=== PATIENT | male | born 1970 | race Caucasian/White ===

== ENCOUNTER 2017-08-27 17:45 | Inpatient (IN) | payer OTHER ==
[2017-08-27 18:22] LABS: Basophils # (Auto) 0.1 K/mm3 (0.0-0.1); Basophils % (Auto) 0.6 % (0.0-1.8); Eosinophils % (Auto) 0.1 % (0.0-4.3); Hematocrit 47.3 % (35.5-45.6); Hemoglobin 16.1 gm/dl (11.8-15.2); Lymphocytes # (Auto) 1.4 K/mm3 (1.2-5.4); Lymphocytes % (Auto) 13.9 % (13.4-35.0); Mean Corpuscular HGB Conc 34 % (32-34); Mean Corpuscular Hemoglobin 31 pg (28-32); Mean Corpuscular Volume 91 fl (84-94); Monocytes # (Auto) 0.4 K/mm3 (0.0-0.8); Monocytes % (Auto) 4.5 % (0.0-7.3); Platelet Count 346 K/mm3 (140-440); Red Cell Distribution Width 13.4 % (13.2-15.2)
[2017-08-27 18:38] LABS: Alanine Aminotransferase 18 units/L (7-56); Albumin 4.4 g/dL (3.9-5); BUN/Creatinine Ratio 14; Blood Urea Nitrogen 14 mg/dL (9-20); Calcium 9.9 mg/dL (8.4-10.2); Hemolysis Index 12; Lipase 17 units/L (13-60)
--- NOTE | 2017-08-27 18:42 | Ultrasound Report ---
FINAL REPORT PROCEDURE: US ABDOMEN LIMITED TECHNIQUE: Real-time sonography was performed of the right upper quadrant with image documentation. CPT 45263 HISTORY: abd pain COMPARISON: No prior studies are available for comparison. FINDINGS: Liver demonstrates increased echotexture. Visualized pancreatic head and body demonstrate normal appearance. Right kidney measures 10 x 5 x 6 centimeters with normal echotexture without calculi or hydronephrosis. Gallbladder is well distended and filled with multiple echogenic shadowing calculi measuring about 1 centimeter. There is mild thickening of the gallbladder talley. No pericholecystic collections are noted. Common duct is 5 millimeters in caliber.. IMPRESSION: Cholelithiasis with wall thickening consistent with cholecystitis Fatty liver
[2017-08-27] MEDS ORDERED: ZOFRAN IV ONE (19:48)
[2017-08-27] MEDS ORDERED: DILAUDID IV ONE (19:48)
[2017-08-27] MEDS ORDERED: NACL 0.9% 1000 ML 1,000 ML IV ONE (19:48)
[2017-08-27] MEDS ORDERED: BENTYL IM ONE (19:48)
--- NOTE | 2017-08-27 19:58 | Emergency Department Report ---
HPI - General Chief Complaint: Abdominal Pain - HPI HPI: Room 24 The patient is a 46-year-old male presenting with chief complaint of abdominal pain. Patient complain of midepigastric right upper quadrant abdominal pain that began last night. The pain has been constant and associated with copious nausea and vomiting. There has been no history of diarrhea. Has been no history of fever. The patient gives his pain a score of 10/10 the patient states his abdominal pain does radiate to his back Location: Abdomen Duration: Constant since last night Quality: Pain Severity: 10/10 Modifying factors: [see above] Context: [see above] Mode of transportation: [not driving] ED Past Medical Hx - Past Medical History Previous Medical History?: No - Surgical History Past Surgical History?: No - Family History Family history: no significant - Social History Smoking Status: Current Every Day Smoker (1/2 pack per day) Substance Use Type: None, Alcohol (occasional) - Medications Home Medications: Home Medications Medication Instructions Recorded Confirmed Last Taken Type Ibuprofen [Motrin] 600 mg PO Q8H PRN #40 tablet 04/18/15 Unknown Rx Neomy/Polymyx B/Hc (Otic) Soln 4 drops AU TID #1 bottle 04/18/15 Unknown Rx [Cortisporin (Otic) Soln] Sulfamethoxazole/Trimethoprim 1 each PO BID #20 tablet 04/18/15 Unknown Rx [Bactrim DS TAB] traMADol [Ultram] 50 mg PO Q6HR PRN #20 tablet 04/18/15 Unknown Rx Acetaminophen [Tylenol] 500 mg PO Q6HR #20 tablet 07/07/15 Unknown Rx Omeprazole [PriLOSEC] 20 mg PO QDAY #14 capsule.dr 07/07/15 Unknown Rx Ondansetron [Zofran Odt] 4 mg PO Q8HR #10 tab.rapdis 07/07/15 Unknown Rx Polyethylene Glycol/Elect 4,000 ml PO ONCE #1 bottle 07/07/15 Unknown Rx [Golytely] ED Review of Systems ROS: Stated complaint: ABD PAIN Other details as noted in HPI Constitutional: denies: fever Gastrointestinal: abdominal pain, nausea, vomiting. denies: diarrhea Musculoskeletal: back pain Physical Exam - Physical Exam Vital Signs: Vital Signs 08/27/17 17:49 Temperature 98.7 F Pulse Rate 58 L Respiratory 18 Rate Blood Pressure 138/82 O2 Sat by Pulse 100 Oximetry Physical Exam: GENERAL: The patient is well-developed well-nourished male lying on stretcher moaning in pain. [] HEENT: Normocephalic. Atraumatic. Extraocular motions are intact. Patient has moist mucous membranes. NECK: Supple. No meningitic signs are noted. There is no adenopathy noted. CHEST/LUNGS: Clear to auscultation. There is no respiratory distress noted. HEART/CARDIOVASCULAR: Regular. There is no tachycardia. There is no gallop rub or murmur. ABDOMEN: Abdomen is soft, with tenderness to palpation in the right upper quadrant. No rebound or guarding. Patient has normal bowel sounds. There is no abdominal distention. SKIN: There is no rash. There is no edema. There is no diaphoresis. NEURO: The patient is awake, alert, and oriented. The patient is cooperative. The patient has normal speech MUSCULOSKELETAL:There is no evidence of acute injury. ED Course Vital Signs 08/27/17 17:49 Temperature 98.7 F Pulse Rate 58 L Respiratory 18 Rate Blood Pressure 138/82 O2 Sat by Pulse 100 Oximetry - Reevaluation(s) Reevaluation #1: 08/27/17 21:08 Patient states his pain is decreased from 10/10-5/10 after IV analgesics. Patient states he still is not comfortable going home at this time - Consultations Consultation #1: 08/27/17 20:01 Surgery paged 08/27/17 20:06 Ultrasound labs discuss with Dr. Morse. I explained that the patient just received pain medication. I will call Dr. Morse back in 1 hour 08/27/17 21:09 Surgery paged 08/27/17 21:[address] Morse. States he will admit the patient to the hospital ED Medical Decision Making - Lab Data Result diagrams: 08/27/17 18:00 08/27/17 18:00 Laboratory Tests 08/27/17 08/27/17 18:00 18:00 WBC 10.0 RBC 5.20 H Hgb 16.1 H Hct 47.3 H MCV 91 MCH 31 MCHC 34 RDW 13.4 Plt Count 346 Lymph % (Auto) 13.9 Beadle % (Auto) 4.5 Eos % (Auto) 0.1 Baso % (Auto) 0.6 Lymph # 1.4 Beadle # 0.4 Eos # 0.0 Baso # 0.1 Seg Neutrophils % 80.9 H Seg Neutrophils # 8.1 H Sodium 140 Potassium 4.3 Chloride 98.2 Carbon Dioxide 23 Anion Gap 23 BUN 14 Creatinine 1.0 Estimated GFR > 60 BUN/Creatinine Ratio 14 Glucose 130 H Calcium 9.9 Total Bilirubin 0.40 AST 29 ALT 18 Alkaline Phosphatase 74 Total Protein 7.6 Albumin 4.4 Albumin/Globulin Ratio 1.4 Lipase 17 - Radiology Data Radiology results: report reviewed (right upper quadrant ultrasound), image reviewed (right upper quadrant ultrasound) Right upper quadrant ultrasound (read by radiologist)-gallbladders well distended and filled with multiple echogenic shadowing calculi measuring about 1 cm. There is mild thickening of the gallbladder talley. No pericholecystic collections are noted. Common duct is 5 mm in caliber. Impression: Cholelithiasis with wall thickening consistent with cholecystitis. Fatty liver - Differential Diagnosis symptomatic cholelithiasis, acute cholecystitis, acute cholangitis, UTI Critical care attestation.: If time is entered above; I have spent that time in minutes in the direct care of this critically ill patient, excluding procedure time. ED Disposition Clinical Impression: Acute abdominal pain, Acute cholecystitis, Nausea & vomiting Disposition: 09 OP ADMIT IP TO THIS HOSP Is pt being admited?: Yes Does the pt Need Aspirin: No Condition: Fair Referrals: YOSVANY AMBROSE MD [Primary Care Provider] - 3-5 Days Time of Disposition: 21:15 (patient admitted by Dr. Morse)
[2017-08-27] MEDS ORDERED: ANCEF/NS 1 GM/50 ML 1 GM/50 ML BAG IV SCH (22:00)
[2017-08-27] MEDS ORDERED: ATIVAN IV ONE (22:38)
[2017-08-27] MEDS: NACL 0.9% 1000 ML 1,000 ML IV SCH (23:58)
[2017-08-28] MEDS: ceFAZolin 1 GM in NACL 0.9% 20 ML IV SCH ×4 (00:29→21:41)
[2017-08-28] MEDS: DILAUDID IV PRN ×4 (00:36→21:38)
[2017-08-28] MEDS: NACL 0.9% 1000 ML 1,000 ML IV SCH ×2 (06:28→18:16)
[2017-08-28] MEDS: ZOFRAN IV PRN ×2 (12:52→18:20)
--- NOTE | 2017-08-28 12:52 | Nuclear Medicine Report ---
NUCLEAR MEDICINE HEPATOBILIARY SCAN: 08/28/17 08:00:00 CLINICAL: Abdominal pain. Cholelithiasis. TECHNIQUE: 5.0mCi technetium 99m Choletec was injected intravenously. Serial images were obtained up to two hours. FINDINGS: Normal activity in the liver, bile ducts and small bowel. No gallbladder activity is identified. IMPRESSION: Nonvisualization of the gallbladder consistent with cystic duct obstruction and probable acute cholecystitis.
--- NOTE | 2017-08-28 18:52 | History and Physical Report ---
HISTORY OF PRESENT ILLNESS: This man was seen in the Emergency Room late in the afternoon because of severe pain to the epigastrium with nausea and vomiting. He is a 46-year-old -[place] man who never had this before maybe one month ago with some pain. The patient never had any abdominal operations. He smokes about a pack a day. He does not drink alcohol. He is a construction sales manager from . Most of the information was given to me by his daughter. She was interpreting that to treat between me and him. He denied any vomiting of blood. He had no problem with his bowel movements. He is a healthy young man, otherwise is in pain to the mid upper epigastrium more to the right side. He denied any diarrhea and he has never been to hospital for any reason. According to our Emergency Room doctor, his pain score was 10/10. ALLERGIES: Allergic reaction were denied. MEDICATIONS: None. SOCIAL HISTORY: He has 3 children. PHYSICAL EXAMINATION: GENERAL: Showed a preserved young man who is in no distress. He is in pain; however, to the right mid upper abdomen. HEAD AND NECK: Negative. NECK: Supple. CHEST: Essentially clear. HEART: Sounds were normal to me. ABDOMEN: Moderately soft. Severe tenderness; however, point tenderness in the midepigastric area to the right side. EXTREMITIES: Showed no edema. IMPRESSION AND PLAN: Epigastric pain, more to the right upper quadrant with nausea and vomiting with a picture of gallbladder disease with stones seen on the sonogram and HIDA scan today showed evidence of a cystic duct obstruction. I had a lengthy talk with the patient and with the bindery library technical assistant, his daughter as to the need for surgical intervention, we will plan to have this done tomorrow. In the meantime, he is on antibiotics in the form of Ancef 1 g q.8 hours, Dilaudid for pain, and Zofran for nausea, IV fluids to go 125 mL per hour, normal saline with 20 of KCl. I talked to him and he agreed on the above, we tried to do him tomorrow. I already called the OR and scheduled his main. JOB# [id number] CHRISK/JORY
[2017-08-28] MEDS: ZOFRAN IV SCH (21:38)
[2017-08-28] MEDS: NS/KCL 20MEQ 20 MEQ/1,000 ML BAG IV SCH (22:21)
[2017-08-29] MEDS: ZOFRAN IV SCH ×5 (00:52→18:20)
[2017-08-29] MEDS: DILAUDID IV PRN ×5 (04:10→17:14)
[2017-08-29] MEDS: ceFAZolin 1 GM in NACL 0.9% 20 ML IV SCH ×3 (05:48→21:18)
[2017-08-29 06:59] LABS: Bilirubin,Urine NEG (Negative); Blood,Urine NEG (Negative); Color,Urine Straw (Yellow); Mucus,Urine FEW /HPF; Protein,Urine <15 mg/dL mg/dL (Negative); Urobilinogen,Urine < 2.0 mg/dL (<2.0); WBC,Urine < 1.0 /HPF (0.0-6.0)
[2017-08-29] MEDS: NS/KCL 20MEQ 20 MEQ/1,000 ML BAG IV SCH (09:05)
[2017-08-29] MEDS ORDERED: VERSED IV NR ×2 (12:00→14:00)
[2017-08-29] MEDS: LACTATED RINGERS 1,000 ML IV SCH ×2 (13:25→18:37)
[2017-08-29] MEDS ORDERED: MARCAINE 0.5% 30 ML INFILTRATI ONE (13:32)
[2017-08-29] MEDS ORDERED: DIPRIVAN 10 MG/ML IV ONE (13:33)
[2017-08-29] MEDS ORDERED: XYLOCAINE MPF 2% ONE (13:33)
[2017-08-29] MEDS ORDERED: ZEMURON IV ONE (13:34)
[2017-08-29] MEDS ORDERED: DILAUDID ONE (13:34)
[2017-08-29] MEDS ORDERED: TORADOL IV PRN (13:38)
[2017-08-29] MEDS ORDERED: ZOFRAN IV PRN (13:38)
--- NOTE | 2017-08-29 13:40 | Anesthesia Day of Surgery ---
Anesthesia Day of Surgery - Day of Surgery Patient Examined: Yes Patient H&P Reviewed: Yes Patient is NPO: Yes
--- NOTE | 2017-08-29 13:40 | Anesthesia Consultation ---
Anesthesia Consult and Med Hx - Airway Anesthetic Teeth Evaluation: Good ROM Head & Neck: Adequate Mental/Hyoid Distance: Adequate Mallampati Class: Class II Intubation Access Assessment: Probably Good - Pulmonary Exam CTA: Yes - Cardiac Exam Cardiac Exam: RRR - Pre-Operative Health Status ASA Pre-Surgery Classification: ASA2 Proposed Anesthetic Plan: General - Pulmonary Hx Smoking: Yes Hx Asthma: No COPD: No Hx Pneumonia: No - Cardiovascular System Hx Hypertension: Yes Hx Coronary Artery Disease: No Hx Heart Attack/AMI: No Hx Angina: No - Endocrine Hx End Stage Renal Disease: No - Other Systems Hx Cancer: No
[2017-08-29] MEDS ORDERED: LACTATED RINGERS 1,000 ML IV SCH ×2 (14:00)
[2017-08-29] MEDS ORDERED: MARCAINE 0.5% INFILTRATI ONE (14:22)
[2017-08-29] MEDS ORDERED: NEOSTIGMINE ONE (15:29)
[2017-08-29] MEDS ORDERED: ROBINUL ONE (15:29)
[2017-08-29] MEDS ORDERED: ZOFRAN ONE (15:30)
[2017-08-29] MEDS ORDERED: LACTATED RINGERS 1,000 ML ONE (15:32)
[2017-08-29] MEDS ORDERED: ULTRAM PO PRN (15:38)
--- NOTE | 2017-08-29 15:53 | Post Anesthesia Evaluation ---
- Post Anesthesia Evaluation Patient Participated: Yes Airway Patent: Yes Stable Respiratory Function: Yes Nausea/Vomiting: No Temp > 96.8F: Yes Pain Manageable: Yes Adequeate Hydration: Yes Anesthesia Complications: No
[2017-08-29] MEDS: ZOFRAN ODT PO SCH (21:38)
[2017-08-30] MEDS: DILAUDID IV PRN ×6 (00:22→21:28)
[2017-08-30] MEDS: LACTATED RINGERS 1,000 ML IV SCH ×3 (00:23→21:28)
[2017-08-30] MEDS: ZOFRAN IV SCH ×4 (00:36→21:28)
[2017-08-30] MEDS: ZOFRAN ODT PO SCH ×3 (06:03→23:00)
[2017-08-30] MEDS: ceFAZolin 1 GM in NACL 0.9% 20 ML IV SCH ×3 (06:06→21:29)
[2017-08-30] MEDS: PROTONIX PO SCH (09:25)
[2017-08-30] MEDS ORDERED: NON-FORMULARY (Omeprazole [Prilosec] 20 MG) PO SCH (10:00)
--- NOTE | 2017-08-30 16:07 | Progress Note ---
Subjective Patient Reports: Positive: feels better, flatus Narrative: alert responsive , drainage minimal sanguinous .NG in will DC . ambulate .ice chips . Objective Vital Signs - 12hr 08/30/17 08/30/17 08/30/17 04:24 04:33 07:04 Temperature 99.0 F 99.7 F H Pulse Rate 57 L 61 Respiratory 18 18 20 Rate Blood Pressure 116/71 110/64 [Left] O2 Sat by Pulse 96 97 Oximetry 08/30/17 08/30/17 12:00 12:04 Temperature 99.0 F Pulse Rate 59 L 58 L Respiratory 18 Rate Blood Pressure 114/67 [Left] O2 Sat by Pulse 98 98 Oximetry - Labs 08/27/17 18:00 08/27/17 18:00
[2017-08-30 17:01] LABS: Hematocrit 37.4 % (35.5-45.6); Hemoglobin 12.7 gm/dl (11.8-15.2); Mean Corpuscular HGB Conc 34 % (32-34); Mean Corpuscular Hemoglobin 31 pg (28-32); Mean Corpuscular Volume 93 fl (84-94); Platelet Count 284 K/mm3 (140-440); Red Blood Count 4.04 M/mm3 (3.65-5.03); Red Cell Distribution Width 13.3 % (13.2-15.2)
[2017-08-30 17:14] LABS: Alanine Aminotransferase 16 units/L (7-56); Albumin 3.3 g/dL (3.9-5)
[2017-08-30 17:16] LABS: Bilirubin,Direct < 0.2 mg/dL (0-0.2)
--- NOTE | 2017-08-30 19:32 | Operative Report ---
PREOPERATIVE DIAGNOSES: Gallbladder disease with stones with positive HIDA scan. POSTOPERATIVE DIAGNOSES: Gallbladder disease with stones with positive HIDA scan. SURGERY: Laparoscopic cholecystectomy with conversion to open that is as the patient had lots of inflammation the gallbladder was very thick and we barely was able to see the infundibulum. ANESTHESIA: General. BLOOD LOSS: Minimal. FINDINGS: The patient had very severely inflamed gallbladder to me that the wall is at least 5-8 mm thick. The infundibulum was barely seen and I could not pinpoint the cystic duct area, so had to open this was after putting the 4 trocars #10 in the epigastric area, #5 in the infraumbilical area and 2 fives in the right upper quadrants, so I could not do that and I had to abort the laparoscopic procedure and make it an open. DESCRIPTION OF PROCEDURE: As above, then, a costal incision was performed on the right side, deep and subcutaneous tissue all the way down to fascia, which was incised. I was able to reach the peritoneum. The gallbladder was barely palpable. It was thick. I had to compress it and aspirate bile from it. It was held from its fundus and infundibular area. At that point, I had to go retrogradely, dissecting it from its bed with use of blunt and sharp dissection down to the infundibulum, at which point I was able to isolate the cystic duct, was very small, barely 1-2 mm. I put 1 clip there and then the gallbladder was removed in toto. The area was then irrigated with sterile normal saline and I left a drain there through a small stab wound incision in the right side of abdomen and the wound was then closed in layers. I used #1 Vicryl continuous and then 1 interrupted for the fascia and the skin with mavis. The patient was then transferred to the recovery room in good condition. JOB# [id number] ABBY/JORY
[2017-08-31] MEDS: ZOFRAN IV SCH ×4 (02:33→20:45)
[2017-08-31] MEDS: ZOFRAN ODT PO SCH ×2 (05:36→14:50)
[2017-08-31] MEDS: ceFAZolin 1 GM in NACL 0.9% 20 ML IV SCH ×3 (05:39→23:55)
[2017-08-31] MEDS: PROTONIX PO SCH (09:31)
[2017-08-31] MEDS: LACTATED RINGERS 1,000 ML IV SCH (09:33)
--- NOTE | 2017-08-31 16:51 | Progress Note ---
Subjective Patient Reports: Positive: feels better, still having pain, flatus Narrative: Doing fine will start PO home in AM ? Objective Vital Signs - 12hr 08/31/17 08/31/17 08/31/17 05:29 05:32 08:00 Temperature 100.2 F H 99.6 F 99.2 F Pulse Rate 69 Respiratory 20 18 Rate Blood Pressure Blood Pressure 97/62 103/64 [Left] O2 Sat by Pulse 91 Oximetry 08/31/17 08/31/17 08:21 13:07 Temperature Pulse Rate 62 93 H Respiratory Rate Blood Pressure 109/73 Blood Pressure [Left] O2 Sat by Pulse 94 95 Oximetry - Labs 08/30/17 16:43 08/27/17 18:00 Diabetes panel 08/30/17 Range/Units 16:43 AST 26 (5-40) units/L ALT 16 (7-56) units/L Alkaline Phosphatase 61 (35-129) units/L Total Protein 6.2 L (6.3-8.2) g/dL Albumin 3.3 L (3.9-5) g/dL Calcium panel 08/30/17 Range/Units 16:43 Albumin 3.3 L (3.9-5) g/dL Adrenal panel 08/30/17 Range/Units 16:43 Total Bilirubin 0.70 (0.1-1.2) mg/dL AST 26 (5-40) units/L ALT 16 (7-56) units/L Alkaline Phosphatase 61 (35-129) units/L Total Protein 6.2 L (6.3-8.2) g/dL Albumin 3.3 L (3.9-5) g/dL
[2017-09-01] MEDS: ZOFRAN IV SCH ×3 (00:57→13:00)
[2017-09-01] MEDS: ZOFRAN ODT PO SCH ×2 (00:59→06:34)
[2017-09-01] MEDS: DILAUDID IV PRN ×2 (01:17→06:34)
[2017-09-01] MEDS: LACTATED RINGERS 1,000 ML IV SCH (01:23)
[2017-09-01] MEDS: ceFAZolin 1 GM in NACL 0.9% 20 ML IV SCH ×2 (06:18→14:24)
[2017-09-01] MEDS: PROTONIX PO SCH (10:13)
--- NOTE | 2017-09-01 14:42 | Discharge Summary ---
This man came via the ER because of severe pain to the right upper quadrant. He was found to have gallstones and this was seen on the x-ray, so he underwent laparoscopic cholecystectomy. This was changed to an open cholecystectomy. This was on 08/30/2017. Postop, he did extremely well. He was discharged home to be seen in my office in about 10 days. Low fat diet was given prescription for Vicodin to be taken every 4-6 hours, to call me if he has any problem otherwise. JOB# [id number] ABBY/JORY
[2017-09-01 16:55] VITALS: BP 109/64
--- NOTE | 2017-09-02 22:11 | Discharge Summary ---
FINAL DIAGNOSIS: Acute cholecystitis. HOSPITAL COURSE: This was seen the day of his admission because of severe pain that he developed in the right upper quadrant, severe nausea and vomiting. He had a workup done by our ER physician and he had a gallbladder HIDA scan that showed evidence of_obstuction of the gallbladder. The pain was consistent with the right upper quadrant. Thus he was taken to the operating room where he underwent a laparoscopic choecystectomy. This was changed to an open cholecystectomy because the extensive inflammation. Postop, he did well progressively day after day and on the third postop day, he was discharged home to be seen in my office in 1 week. The patient was given prescription for Vicodin and to call me if he has any problem otherwise. I did remove the drain on the day of his discharge. JOB# [id number] ABBY/JORY LIZARRAGA
== END 2017-09-01 18:00 | disposition home or self-care (01) | DRG 416 ==
LOC: ED 17:45 → 3B-SURG 21:11
PROVIDERS: ADMIT Surgery; ATTEND Surgery
PROC: 0FT40ZZ Resection of Gallbladder, Open Approach (ICD-10-PCS; principal; 2017-08-29)
PROC: 0FJ44ZZ Inspection of Gallbladder, Percutaneous Endoscopic Approach (ICD-10-PCS; 2017-08-29)
DX: K80.01 Calculus of gallbladder with acute cholecystitis with obstruction (principal); F17.200 Nicotine dependence, unspecified, uncomplicated; I10 Essential (primary) hypertension; Z79.899 Other long term (current) drug therapy
CPT/HCPCS: 36415; 76705; 78226; 80053; 80074; 81001; 83690; 85025; 85027; 88304; 96361; 96372; 96374; 96375; A9537; J0500; J0690; J1170; J1885; J2060; J2250; J2405; J2704; J2710; J7030; J7120; Q0162

== ENCOUNTER 2018-03-15 20:51 | Emergency (ER) | payer SELFPAY ==
[2018-03-16] MEDS ORDERED: NORCO 7.5/325 PO ONE (00:13)
[2018-03-16] MEDS ORDERED: BOOSTRIX IM ONE (00:13)
--- NOTE | 2018-03-16 00:42 | XRay Report ---
FINAL REPORT EXAM: XR FINGER(S) 2+V RT HISTORY: right third digit laceration from a table saw TECHNIQUE: Three views of the right middle finger were obtained. FINDINGS: There is a comminuted transverse fracture of the tuft of the distal phalanx of the middle finger with multiple bone fragments and soft tissue swelling. The distal interphalangeal joint otherwise appears intact. IMPRESSION: Comminuted transverse fracture of the tuft of the distal phalanx of the middle finger with associated soft tissue deformity.
--- NOTE | 2018-03-16 01:01 | Emergency Department Report ---
- General Chief Complaint: Wound/Laceration Stated Complaint: CUT RT MIDDLE FINGER Time Seen by Provider: 03/15/18 23:56 Source: patient Mode of arrival: Ambulatory Limitations: No Limitations - History of Present Illness Initial Comments: 47-year-old male comes into the emergency room for right hand third digit cut with a table saw hypoxia 5 PM at work. Patient reports that he cleaned the wound off with water. Patient reports he is not aware of his last tetanus vaccine. Patient reports his pain to 10 out of 10. Patient denies any past medical history currently takes no medications on a daily basis and has no known drug allergies. -: days(s) Time: 17:00 (Tuesday evening) Place: work Context: accidental Associated Symptoms: pain Treatments Prior to Arrival: other (cleaned wound off with water) - Related Data Previous Rx's Medication Instructions Recorded Last Taken Type Neomy/Polymyx B/Hc (Otic) Soln 4 drops AU TID #1 bottle 04/18/15 Unknown Rx [Cortisporin (Otic) Soln] Sulfamethoxazole/Trimethoprim 1 each PO BID #20 tablet 04/18/15 Unknown Rx [Bactrim DS TAB] traMADol [Ultram] 50 mg PO Q6HR PRN #20 tablet 04/18/15 Unknown Rx Acetaminophen [Tylenol] 500 mg PO Q6HR #20 tablet 07/07/15 Unknown Rx Omeprazole [PriLOSEC] 20 mg PO QDAY #14 capsule. 07/07/15 Unknown Rx Ondansetron [Zofran Odt] 4 mg PO Q8HR #10 tab.rapdis 07/07/15 Unknown Rx Polyethylene Glycol/Elect 4,000 ml PO ONCE #1 bottle 07/07/15 Unknown Rx [Golytely] Ibuprofen [Motrin 600 MG tab] 600 mg PO Q8H PRN #40 tablet 03/16/18 Unknown Rx Sulfamethoxazole/Trimethoprim 1 each PO Q12H #20 tablet 03/16/18 Unknown Rx [Bactrim Ds Tablet] Allergies Allergy/AdvReac Type Severity Reaction Status Date / Time No Known Allergies Allergy Verified 04/18/15 15:22 ED Review of Systems ROS: Stated complaint: CUT RT MIDDLE FINGER Other details as noted in HPI Comment: All other systems reviewed and negative Constitutional: denies: chills, fever Musculoskeletal: arthralgia (right third digit hand) Skin: other (cut to right third digit tip) ED Past Medical Hx - Past Medical History Hx Hypertension: Yes Hx Heart Attack/AMI: No Hx Congestive Heart Failure: No Hx Diabetes: No Hx Asthma: No Hx COPD: No Hx HIV: No - Social History Smoking Status: Current Every Day Smoker Substance Use Type: Alcohol - Medications Home Medications: Home Medications Medication Instructions Recorded Confirmed Last Taken Type Neomy/Polymyx B/Hc (Otic) Soln 4 drops AU TID #1 bottle 04/18/15 Unknown Rx [Cortisporin (Otic) Soln] Sulfamethoxazole/Trimethoprim 1 each PO BID #20 tablet 04/18/15 Unknown Rx [Bactrim DS TAB] traMADol [Ultram] 50 mg PO Q6HR PRN #20 tablet 04/18/15 Unknown Rx Acetaminophen [Tylenol] 500 mg PO Q6HR #20 tablet 07/07/15 Unknown Rx Omeprazole [PriLOSEC] 20 mg PO QDAY #14 capsule. 07/07/15 Unknown Rx Ondansetron [Zofran Odt] 4 mg PO Q8HR #10 tab.rapdis 07/07/15 Unknown Rx Polyethylene Glycol/Elect 4,000 ml PO ONCE #1 bottle 07/07/15 Unknown Rx [Golytely] Ibuprofen [Motrin 600 MG tab] 600 mg PO Q8H PRN #40 tablet 03/16/18 Unknown Rx Sulfamethoxazole/Trimethoprim 1 each PO Q12H #20 tablet 03/16/18 Unknown Rx [Bactrim Ds Tablet] ED Physical Exam - General Limitations: No Limitations General appearance: alert, in no apparent distress - Head Head exam: Present: atraumatic, normocephalic - Eye Eye exam: Present: EOMI - ENT ENT exam: Present: mucous membranes moist - Respiratory Respiratory exam: Present: normal lung sounds bilaterally. Absent: respiratory distress - Cardiovascular Cardiovascular Exam: Present: regular rate, normal rhythm. Absent: systolic murmur, diastolic murmur, rubs, gallop - Expanded Upper Extremity Exam Right Hand Wrist exam: Present: tenderness (right third digit), swelling (right third digit), subungual hematoma (right third digit) - Neurological Exam Neurological exam: Present: alert, oriented X3 - Psychiatric Psychiatric exam: Present: normal affect, normal mood - Skin Skin exam: Present: warm, dry, intact, normal color. Absent: rash ED Course Vital Signs 03/15/18 21:17 Temperature 98.2 F Pulse Rate 71 Respiratory 18 Rate Blood Pressure 132/90 O2 Sat by Pulse 97 Oximetry ED Medical Decision Making - Radiology Data Radiology results: report reviewed FINDINGS: There is a comminuted transverse fracture of the tuft of the distal phalanx of the middle finger with multiple bone fragments and soft tissue swelling. The distal interphalangeal joint otherwise appears intact. IMPRESSION: Comminuted transverse fracture of the tuft of the distal phalanx of the middle finger with associated soft tissue deformity. Transcribed By: RB Dictated By: MARBELLA DEL RIO MD Electronically Authenticated By: MARBELLA DEL RIO MD Signed Date/Time: 03/16/1840 DD/ TD/TT: 03/16/1840 Critical care attestation.: If time is entered above; I have spent that time in minutes in the direct care of this critically ill patient, excluding procedure time. ED Disposition Clinical Impression: Open fracture of tuft of distal phalanx of finger Disposition: DC-01 TO HOME OR SELFCARE Is pt being admited?: No Does the pt Need Aspirin: No Condition: Stable Instructions: Finger Fracture (ED) Additional Instructions: Please complete antibiotics as prescribed. Pain medication as needed. It's very important for you to follow-up with orthopedic I have listed several below for your convenience. I've also given you a copy of your x-ray on disk to give to the orthopedic provider. Please keep wound clean and dry return back in to the ER 7-10 days for suture removal. Please return sooner if there is any signs of infection such as increased swelling increase redness worsening pain or purulent discharge. Por favor complete los antibiticos segn lo prescrito. Medicamentos para el dolor segn sea necesario. Es muy importante que realice un seguimiento con un mdico ortopdico. He enumerado varios a continuacin para smith conveniencia. Arvind teague dado mumtaz copia de smith radiografa en el disco para drsela al proveedor ortopdico. Mantenga la herida limpia y seca. Vuelva a la maria luz de emergencias de 7 a 10 marie para retirar la sutura. Regrese antes si hay signos de infeccin, agnieszka aumento de la hinchazn, aumento del enrojecimiento, empeoramiento del dolor o secrecin purulenta. Prescriptions: Ibuprofen [Motrin 600 MG tab] 600 mg PO Q8H PRN #40 tablet PRN Reason: Pain Sulfamethoxazole/Trimethoprim [Bactrim Ds Tablet] 1 each PO Q12H #20 tablet Referrals: PRIMARY CAREMD [Primary Care Provider] - 3-5 Days MARBELLA ACUNA MD [Staff Physician] - 3-5 Days RAINE CRENSHAW MD [Staff Physician] - 3-5 Days Forms: Work/School Release Form(ED), Accompanied Note Print Language: PASHTO
[2018-03-16] MEDS ORDERED: ANCEF IM ONE (01:50)
[2018-03-16] MEDS ORDERED: ANCEF ONE (01:51)
[2018-03-16] MEDS ORDERED: XYLOCAINE 1% MPF 5 mL INFILTRATI ONE (01:56)
[2018-03-16] MEDS: ANCEF IM ONE ×2 (02:25→02:50)
[2018-03-16 03:10] VITALS: BP 146/75
== END 2018-03-16 03:09 | disposition home or self-care (01) ==
LOC: ED 20:51
DX: S62.632B Displaced fracture of distal phalanx of right middle finger, initial encounter for open fracture (principal); F17.200 Nicotine dependence, unspecified, uncomplicated; Z79.899 Other long term (current) drug therapy; W27.8XXA Contact with other nonpowered hand tool, initial encounter; Y93.89 Activity, other specified; Y99.8 Other external cause status; Y92.69 Other specified industrial and construction area as the place of occurrence of the external cause
CPT/HCPCS: 73140; 90471; 90715; 96372; 99283; J0690

== ENCOUNTER 2021-05-07 18:32 | Emergency (ER) | payer OTHER ==
[2021-05-07 19:39] VITALS: BP 116/72
[2021-05-07] MEDS ORDERED: ONDANSETRON 4 MG ODT TAB PO ONE (23:30)
[2021-05-07] MEDS ORDERED: diazePAM 5 MG TAB PO ONE (23:30)
[2021-05-07] MEDS ORDERED: oxyCODONE /ACETAMINOPHEN 5-325MG TAB PO ONE (23:30)
[2021-05-07] MEDS ORDERED: KETOROLAC 60 MG/2 ML INJ IM ONE (23:30)
[2021-05-07] MEDS ORDERED: dexAMETHasone 20 MG/5 ML VIAL IM ONE (23:30)
--- NOTE | 2021-05-08 00:07 | Emergency Department Report ---
ED Back Pain/Injury HPI - General Chief Complaint: Back Pain/Injury Stated Complaint: back pain Source: patient Limitations: Language Barrier - History of Present Illness Initial Comments: Patient is a 50-year-old male with a history of hypertension who presents to the ED with complaint of acute onset persistent severe low back pain that radiates to the lower extremities bilaterally for the last 2 days after heavy lifting at work. Patient states that the pain is especially gotten worse in the last 24 hours site ambulation or getting out of bed worsen the pain. Patient denies urinary retention, bowel incontinence, saddle paresthesia, numbness and tingling or weakness of lower extremities bilaterally, change in vision, chest pain, shortness of breath, fall, traumatic injury, headache, neck pain, dizziness or syncope. MD Complaint: back pain, other (bilateral lower extremity numbness and tingling) -: Sudden, days(s) (2) Similar Symptoms Previously: No Place: work Radiation: left leg, right leg Severity: severe Severity scale (0 -10): 8 Quality: sharp, aching, tingling Consistency: constant Improves With: none Worsens With: movement, supine, walking Context: while lifting, turning/twisting Associated Symptoms: denies other symptoms. denies: confusion, weakness, chest pain, numbness, difficulty walking, cough, difficulty urinating, diaphoresis, incontinence, fever/chills, constipation, headaches, abdominal pain, loss of appetite, malaise, nausea/vomiting, seizure, shortness of breath, syncope Treatments Prior to Arrival: acetaminophen - Related Data Previous Rx's Medication Instructions Recorded Last Taken Type Neomy/Polymyx B/Hc (Otic) Soln 4 drops AU TID #1 bottle 04/18/15 Unknown Rx [Cortisporin (Otic) Soln] Sulfamethoxazole/Trimethoprim 1 each PO BID #20 tablet 04/18/15 Unknown Rx [Bactrim DS TAB] traMADoL [Ultram] 50 mg PO Q6HR PRN #20 tablet 04/18/15 Unknown Rx Acetaminophen [Tylenol] 500 mg PO Q6HR #20 tablet 07/07/15 Unknown Rx Omeprazole [PriLOSEC] 20 mg PO QDAY #14 capsule. 07/07/15 Unknown Rx Ondansetron [Zofran Odt] 4 mg PO Q8HR #10 tab.rapdis 07/07/15 Unknown Rx Polyethylene Glycol/Elect 4,000 ml PO ONCE #1 bottle 07/07/15 Unknown Rx [Golytely] Ibuprofen [Motrin 600 MG tab] 600 mg PO Q8H PRN #40 tablet 03/16/18 Unknown Rx Sulfamethoxazole/Trimethoprim 1 each PO Q12H #20 tablet 03/16/18 Unknown Rx [Bactrim Ds Tablet] Ibuprofen [Motrin] 800 mg PO Q8HR PRN #30 tablet 05/08/21 Unknown Rx methOCARBAMOL [Robaxin TAB] 750 mg PO Q8H PRN #30 tablet 05/08/21 Unknown Rx predniSONE [Deltasone] 60 mg PO QDAY #15 tab 05/08/21 Unknown Rx traMADoL [Ultram] 50 mg PO Q6HR PRN #12 tablet 05/08/21 Unknown Rx Allergies Allergy/AdvReac Type Severity Reaction Status Date / Time No Known Allergies Allergy Verified 04/18/15 15:22 ED Review of Systems ROS: Stated complaint: back pain Other details as noted in HPI Constitutional: denies: chills, fever Eyes: denies: eye pain, eye discharge, vision change ENT: denies: ear pain, throat pain Respiratory: denies: cough, shortness of breath, wheezing Cardiovascular: denies: chest pain, palpitations Endocrine: no symptoms reported Gastrointestinal: denies: abdominal pain, nausea, vomiting, diarrhea, constipation, hematemesis, melena, hematochezia Genitourinary: denies: urgency, dysuria Musculoskeletal: back pain (lower back), arthralgia (bilateral lower extremities bilaterally), myalgia. denies: joint swelling Skin: denies: rash, lesions Neurological: denies: headache, weakness, paresthesias Psychiatric: denies: anxiety, depression Hematological/Lymphatic: denies: easy bleeding, easy bruising ED Past Medical Hx - Past Medical History Hx Hypertension: Yes Hx Heart Attack/AMI: No Hx Congestive Heart Failure: No Hx Diabetes: No Hx Asthma: No Hx COPD: No Hx HIV: No - Social History Smoking Status: Current Every Day Smoker Substance Use Type: Alcohol - Medications Home Medications: Home Medications Medication Instructions Recorded Confirmed Last Taken Type Neomy/Polymyx B/Hc (Otic) Soln 4 drops AU TID #1 bottle 04/18/15 Unknown Rx [Cortisporin (Otic) Soln] Sulfamethoxazole/Trimethoprim 1 each PO BID #20 tablet 04/18/15 Unknown Rx [Bactrim DS TAB] traMADoL [Ultram] 50 mg PO Q6HR PRN #20 tablet 04/18/15 Unknown Rx Acetaminophen [Tylenol] 500 mg PO Q6HR #20 tablet 07/07/15 Unknown Rx Omeprazole [PriLOSEC] 20 mg PO QDAY #14 capsule.dr 07/07/15 Unknown Rx Ondansetron [Zofran Odt] 4 mg PO Q8HR #10 tab.rapdis 07/07/15 Unknown Rx Polyethylene Glycol/Elect 4,000 ml PO ONCE #1 bottle 07/07/15 Unknown Rx [Golytely] Ibuprofen [Motrin 600 MG tab] 600 mg PO Q8H PRN #40 tablet 03/16/18 Unknown Rx Sulfamethoxazole/Trimethoprim 1 each PO Q12H #20 tablet 03/16/18 Unknown Rx [Bactrim Ds Tablet] Ibuprofen [Motrin] 800 mg PO Q8HR PRN #30 tablet 05/08/21 Unknown Rx methOCARBAMOL [Robaxin TAB] 750 mg PO Q8H PRN #30 tablet 05/08/21 Unknown Rx predniSONE [Deltasone] 60 mg PO QDAY #15 tab 05/08/21 Unknown Rx traMADoL [Ultram] 50 mg PO Q6HR PRN #12 tablet 05/08/21 Unknown Rx ED Physical Exam - General Limitations: Language Barrier General appearance: alert, in no apparent distress - Head Head exam: Present: atraumatic, normocephalic, normal inspection - Eye Eye exam: Present: normal appearance, PERRL, EOMI Pupils: Present: normal accommodation - ENT ENT exam: Present: normal exam, normal orophraynx, mucous membranes moist, TM's normal bilaterally, normal external ear exam - Neck Neck exam: Present: normal inspection, full ROM - Respiratory Respiratory exam: Present: normal lung sounds bilaterally. Absent: respiratory distress, wheezes, rales, rhonchi, chest wall tenderness, accessory muscle use, decreased breath sounds, prolonged expiratory - Cardiovascular Cardiovascular Exam: Present: regular rate, normal rhythm, normal heart sounds. Absent: systolic murmur, diastolic murmur, rubs, gallop - GI/Abdominal GI/Abdominal exam: Present: soft, normal bowel sounds. Absent: tenderness, guarding, rebound, hyperactive bowel sounds - Extremities Exam Extremities exam: Present: normal inspection, full ROM, normal capillary refill. Absent: tenderness, pedal edema, joint swelling, calf tenderness - Back Exam Back exam: Present: normal inspection, full ROM, tenderness (Palpable lumbosacral paraspinal musculoskeletal tenderness), muscle spasm, paraspinal tenderness. Absent: CVA tenderness (L), vertebral tenderness - Neurological Exam Neurological exam: Present: alert, oriented X3, CN II-XII intact, normal gait, reflexes normal - Psychiatric Psychiatric exam: Present: normal affect, normal mood - Skin Skin exam: Present: warm, dry, intact, normal color. Absent: rash ED Course Vital Signs 05/07/21 05/08/21 05/08/21 19:38 00:28 00:29 Temperature 98.3 F Pulse Rate 69 Respiratory 20 18 18 Rate Blood Pressure 116/72 [Left] O2 Sat by Pulse 96 Oximetry ED Medical Decision Making - Radiology Data Radiology results: report reviewed, [place] [address] XRay Report Signed Patient: TERRENCE KAUR MR#: [id number] : 1970 Acct:[id number] Age/Sex: 50 / M ADM Date: 05/07/21 Loc: ED Attending Dr: Ordering Physician: KARIME TREVINO Date of Service: 05/07/21 Procedure(s): XR spine lumbosacral 2-3V Accession Number(s): [id number] cc: KARIME TREVINO Fluoro Time In Minutes: LUMBOSACRAL SPINE 2 VIEWS INDICATION / CLINICAL INFORMATION: Severe low back pain. COMPARISON: None available. FINDINGS: BONES / JOINT(S): There is mild nonspecific straightening of the normal thoracolumbar curvature. There is minimal degenerative disc disease at L4-5. The pedicles are intact and the visualized SI joints are normal. There is no evidence of acute fracture, subluxation or destructive lesion. SOFT TISSUES: No significant abnormality. ADDITIONAL FINDINGS: The gallbladder is surgically absent. Signer Name: Bg Cobb MD Signed: 05/08/2021 12:12 AM Workstation Name: [id number] Transcribed By: RT Dictated By: Bg Cobb MD Electronically Authenticated By: Bg Cobb MD Signed Date/Time: 05/08/2111 DD/ TD/TT: Print Cancel - Medical Decision Making This is a 50-year-old male with a history of hypertension who presents to the ED with complaint of acute onset persistent severe low back pain that radiates to the lower extremities bilaterally for the last 2 days after heavy lifting at work. Patient states that the pain is especially gotten worse in the last 24 hours site ambulation or getting out of bed worsen the pain. In the ED, patient is alert and oriented x3 and is not in any distress. Patient was treated for pain in the ED. The L-spine x-ray showed no acute fractures or subluxations of the lumbar spine. Therefore these symptoms are likely due to musculoskeletal injuries following heavy lifting at work. Therefore the patient was discharged home on pain medications and muscle relaxants and advised to take medication with food, drink plenty of fluids and follow-up with your primary care physician in 5 to 7 days for reevaluation. Patient was advised return to the ED immediately if symptoms get worse. - Differential Diagnosis muscle spasm; muscle strain; sciatica; back injury Critical care attestation.: If time is entered above; I have spent that time in minutes in the direct care of this critically ill patient, excluding procedure time. ED Disposition Clinical Impression: Spasm of muscle of lower back, Strain of muscle, fascia and tendon of lower back, initial encounter Acute low back pain with bilateral sciatica Qualifiers: Back pain laterality: bilateral Qualified Code(s): M54.42 - Lumbago with sciatica, left side Disposition: 01 HOME / SELF CARE / HOMELESS Is pt being admited?: No Does the pt Need Aspirin: No Condition: Stable Instructions: Muscle Cramps and Spasms, [id number], Back Injury Prevention, [id number], Sciatica, [id number], Muscle Strain, [id number], Low Back Sprain or Strain Rehab-SportsMed Additional Instructions: The L-spine x-ray showed no acute fractures or subluxations. Therefore your injuries are likely musculoskeletal following heavy lifting at work. Therefore take medications with food, drink plenty of fluids and follow-up with your primary care physician in 7 to 10 days for reevaluation. Return to the ED immediately if symptoms get worse. Prescriptions: predniSONE [Deltasone] 60 mg PO QDAY #15 tab Ibuprofen [Motrin] 800 mg PO Q8HR PRN #30 tablet PRN Reason: Pain , Severe (7-10) methOCARBAMOL [Robaxin TAB] 750 mg PO Q8H PRN #30 tablet PRN Reason: Muscle Spasm traMADoL [Ultram] 50 mg PO Q6HR PRN #12 tablet PRN Reason: Pain Referrals: [facility] [Provider Group] - 7-10 days Forms: Work/School Release Form(ED) Time of Disposition: 00:07 Print Language: CITIZEN OF [place]
--- NOTE | 2021-05-08 00:16 | XRay Report ---
LUMBOSACRAL SPINE 2 VIEWS INDICATION / CLINICAL INFORMATION: Severe low back pain. COMPARISON: None available. FINDINGS: BONES / JOINT(S): There is mild nonspecific straightening of the normal thoracolumbar curvature. Ther e is minimal degenerative disc disease at L4-5. The pedicles are intact and the visualized SI joints are normal. There is no evidence of acute fracture, subluxation or destructive lesion. SOFT TISSUES: No significant abnormality. ADDITIONAL FINDINGS: The gallbladder is surgically absent. Signer Name: Bg Cobb MD Signed: 05/08/2021 12:12 AM Workstation Name: [id number]
== END 2021-05-08 01:14 | disposition home or self-care (01) ==
LOC: ED 18:32
DX: M62.830 Muscle spasm of back (principal); S39.012A Strain of muscle, fascia and tendon of lower back, initial encounter; M54.42 Lumbago with sciatica, left side; X58.XXXA Exposure to other specified factors, initial encounter; Y93.89 Activity, other specified; Y92.89 Other specified places as the place of occurrence of the external cause; Y99.8 Other external cause status
CPT/HCPCS: 72100; 96372; 99283; J1100; J1885; J3490; Q0162